=== PATIENT | male | born 1985 | race Caucasian/White ===

== ENCOUNTER 2019-05-13 10:00 | Emergency (ER) | payer OTHER ==
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
[2019-05-13 12:47] VITALS: BP 139/92
[2019-05-13 12:49] VITALS: TEMP 98; O2SAT 98
--- NOTE | 2019-05-13 13:09 | RAD REPORT ---
EXAM DESCRIPTION: RAD - Shoulder Left 2 View - 05/13/2019 11:31 am CLINICAL HISTORY: pain Left shoulder pain COMPARISON: No comparisons FINDINGS: Lateral downsloping acromion process is noted with mild subacromial outlet narrowing. This may result in a clinical impingement syndrome. No fracture or dislocation. Followup nonemergent MR i maging of the left shoulder may be of value.
== END 2019-05-13 12:37 | disposition home or self-care (01) ==
LOC: ER 10:00
DX: M25.512 Pain in left shoulder (principal)
CPT/HCPCS: 99283